=== PATIENT | female | born 1975 | race Caucasian/White ===

== ENCOUNTER 2017-01-11 02:56 | Emergency (ER) | payer BC ==
--- NOTE | ~2017-01-11 | EKG ---
PATIENT: GUERDA GASTELUM UNIT #: [id number] Ventricular Rate: 96 BPM Atrial Rate: 96 BPM P-R Interval: 136 ms QRS Duration: 80 ms Q-T Interval: 350 ms QTC Calculation(Bezet): 442 ms P [place]: 65 degrees Calculated R [place]: 21 degrees Calculated T [place]: 16 degrees Diagnosis Line: Normal sinus rhythm Diagnosis Line: Normal ECG Diagnosis Line: No previous ECGs available Diagnosis Line: Confirmed by ELADIA ROJAS MD ([id number]) on Diagnosis Line: 01/11/2017 5:29:43 PM INTERPRETING MD: BOB MENDOZA
--- NOTE | ~2017-01-11 | CT16 ---
[facility] A Service [facility] RADIOLOGY TEXT RESULTS PATIENT: GUERDA GASTELUM LOCATION: SED : 73 UNIT #: [id number] AGE: [address]: Santi Whitten MD SEX: F ORDER DR: [id number] [place] [id number] E MR#: [id number] Acc #: [id number] NAME: GUERDA GASTELUM. : 1975 SEX: F STUDY DATE/TIME: 01/11/2017 4:17 UNIT: SED ROOM: STUDY DESCRIPTION: CT Angio Chest for PE Attending Physician: Santi Whitten M.D. Ordering Physician: Santi Whitten M.D. Primary Care Physician: Cleveland Morgan M.D. MEDICAL IMAGING REPORT This report is preliminary unless electronic signature is present. EXAM CTA chest. INDICATIONS Chest pain radiating to the left side and left neck. Left arm pain. Elevated D-dimer. TECHNIQUE CT angiography of the chest utilizing 100 mL Isovue-370 IV contrast. Coronal 3-D MIP reconstructions and sagittal reconstructions were obtained. This CT exam was performed with one or more of the following radiation dose reduction techniques: automatic exposure control, adjustment of mA and/or kV according to patient size, and iterative reconstruction. COMPARISON None available. FINDINGS No pulmonary embolus. No thoracic aortic aneurysm or dissection. No pericardial or pleural effusion. No pathologically enlarged mediastinal or hilar lymph nodes. There is no focal consolidation. Minimal linear atelectasis or scarring is noted in the left lung base. The central airways are patent. Limited images of the upper abdomen were obtained. There is no acute findings. No acute osseous abnormalities. IMPRESSION 1. Negative for pulmonary embolus. [facility] A Service [facility] RADIOLOGY TEXT RESULTS PATIENT: GUERDA GASTELUM LOCATION: SED : 73 UNIT #: [id number] AGE: [address]: Santi Whitten MD SEX: F ORDER DR: 2. No acute findings in the chest. 3. Minimal linear atelectasis or scarring in the left lung base. Dictated by... Paul Cisneros M.D. THIS IS AN ELECTRONICALLY VERIFIED REPORT Paul Cisneros M.D. at 01/14/2017 4:15 PM ELAINE/suleiman TD: 01/11/2017 09:13 JOB #: [id number] MEDICAL IMAGING REPORT Page 1 of 1
[~2017-01-11 02:56] MED LIST: ALAVERT D12 PO; ANTIVERT PO; AZO CRANBERRY PO; AZO YEAST PO; BENTYL10 MG PO; KETOPROFEN PO; LIPITOR PO; LOESTRIN FE 1.51 TAB PO; SYNTHROID PO; TYLENOL SINUS1 EACH PO; WELLBUTRIN XL PO
[2017-01-11] MEDS ORDERED: LIPITOR (03:07)
[2017-01-11] MEDS ORDERED: LISINOPRIL (03:08)
[2017-01-11 03:35] LABS: BASOPHIL% 0.3 % (0-2.5); EOSINOPHIL# 0.2 X10e3 (0-0.7); EOSINOPHIL% 2.5 % (0.0-7.0); HEMATOCRIT 43.2 % (35.0-45.0); HEMOGLOBIN 14.7 gm/dL (12.0-16.0); LYMPHOCYTE# 1.8 X10e3 (1.0-3.5); LYMPHOCYTE% 22.4 % (17.0-45.0); MEAN CELL VOLUME 86.9 FL (83-96); MEAN CORPUSCULAR HEMOGLOBIN 29.6 PG (28-34); MEAN CORPUSCULAR HGB CONC 34.1 g/dL (30-36); MEAN PLATELET VOLUME 8.3 FL (6.5-11.5); MONOCYTE# 0.8 X10e3 (0-1.0); MONOCYTE% 9.6 % (3.0-12.0); NEUTROPHIL# 5.1 X10e3 (1.5-7.1); NEUTROPHIL% 65.2 % (40-75); PLATELET COUNT 212 X10e3 (140-420); RED BLOOD COUNT 4.97 X10e (3.90-5.30); RED CELL DISTRIBUTION WIDTH 13.3 % (11.0-15.5); WHITE BLOOD COUNT 7.9 X10e3 (4.0-10.5)
[2017-01-11 03:38] LABS: DIFF IND NO; INR 1.2; PROTHROMBIN TIME (PATIENT) 13.1 SECONDS (9.5-12.4)
[2017-01-11 03:41] LABS: POC - CKMB <1.0 ng/mL (0.0-7.9); POC - TROPONIN <0.05 ng/mL (<=0.05)
[2017-01-11 03:45] LABS: PARTIAL THROMBOPLASTIN TIME 28.8 SECONDS (25.6-38.1)
[2017-01-11 03:47] LABS: ALBUMIN SERUM 4.8 g/dL (3.5-5.0); BILIRUBIN, DIRECT 0.1 mg/dL (0.0-0.2); BILIRUBIN,INDIRECT 0.8 mg/dL (0.0-0.9); BILIRUBIN,TOTAL 0.9 mg/dL (0.2-2.0); BUN/CREATININE RATIO 15.55; CALCIUM SERUM 9.5 mg/dL (8.4-10.2); CREATININE SERUM 0.9 mg/dL (0.6-1.4); GLOM FILT RATE Estimated 78.9 mL/min (>60); POTASSIUM 3.6 mmol/L (3.5-5.1); PROTEIN TOTAL SERUM 8.4 g/dL (6.0-8.3)
[2017-01-11 06:04] LABS: POC - CKMB <1.0 ng/mL (0.0-7.9)
[2017-01-11 06:05] LABS: POC - TROPONIN <0.05 ng/mL (<=0.05)
[2017-02-11] MEDS ORDERED: PROTONIX PO (11:39)
[2017-02-11] MEDS ORDERED: MAALOX SUSPENS355 ML PO (11:40)
[2017-02-11] MEDS ORDERED: PROPRANOLOL PO (11:41)
[2017-02-11] MEDS ORDERED: NYSTATIN100000 UN1 PO (11:42)
[2017-02-11] MEDS ORDERED: SUMATRIPTAN SUC50 M1 PO (11:42)
[2017-02-11] MEDS ORDERED: LISINOPRIL2.5 MG PO (11:42)
[2017-02-11] MEDS ORDERED: ZYRTEC10 M1 PO (11:43)
[2017-02-11] MEDS ORDERED: LIPITOR20 MG PO (11:43)
== END 2017-01-11 06:09 | disposition home or self-care (01) ==
LOC: SED 02:56
PROVIDERS: Emergency Medicine
DX: R07.9 Chest pain, unspecified (principal); E78.5 Hyperlipidemia, unspecified; I10 Essential (primary) hypertension; Z90.49 Acquired absence of other specified parts of digestive tract; Z90.89 Acquired absence of other organs; Z88.8 Allergy status to other drugs, medicaments and biological substances
CPT/HCPCS: 36415; 71275; 80048; 80076; 82553; 84484; 84703; 85025; 85379; 85610; 85730; 93005; 96361; 96374; 96375; 99285; J0780; J1200; J1885; Q9967

== ENCOUNTER 2017-01-31 20:44 | Emergency (ER) | payer BC ==
[~2017-01-31] VITALS: Ht 170.2 cm; Wt 87.1 kg
--- NOTE | ~2017-01-31 | EKG ---
PATIENT: GUERDA GASTELUM UNIT #: [id number] Ventricular Rate: 80 BPM Atrial Rate: 80 BPM P-R Interval: 156 ms QRS Duration: 86 ms Q-T Interval: 390 ms QTC Calculation(Bezet): 449 ms P [place]: 53 degrees Calculated R [place]: 12 degrees Calculated T [place]: 23 degrees Diagnosis Line: Normal sinus rhythm Diagnosis Line: Cannot rule out Anterior infarct , age Diagnosis Line: undetermined Diagnosis Line: Abnormal ECG Diagnosis Line: No previous ECGs available Diagnosis Line: Confirmed by ELADIA ROJAS MD ([id number]) on Diagnosis Line: 02/01/2017 7:33:00 AM INTERPRETING MD: BOB MENDOZA
--- NOTE | ~2017-01-31 | CT114 ---
[facility] of [facility] RADIOLOGY TEXT RESULTS PATIENT: GUERDA GASTELUM LOCATION: [facility] : 73 UNIT #: [id number] AGE: [address]: Rambo Newman MD SEX: F ORDER DR: [id number] [facility] [address] [place], [place] [address] [id number] E MR#: [id number] Acc #: [id number] NAME: GUERDA GASTELUM : 1975 SEX: F STUDY DATE/TIME: 01/31/2017 22:48 UNIT: [facility] ROOM: STUDY DESCRIPTION: CT Soft Tissue Neck W Cont Attending Physician: Rambo Newman M.D. Ordering Physician: Rambo Newman M.D. Primary Care Physician: Cleveland Morgan M.D. MEDICAL IMAGING REPORT This report is preliminary unless electronic signature is present EXAM Neck CT, 01/31 at 22:48 INDICATIONS Throat and neck swelling for the last 3 days. Recent diagnosis of thrush. TECHNIQUE Axial images were obtained through the neck following IV contrast administration. Multiplanar reformats were obtained. No comparison. This CT exam was performed with one or more of the following radiation dose reduction techniques: Automatic exposure control, adjustment of mA and/or kV according to patient size, and iterative reconstruction. FINDINGS Visualized upper lungs are clear. Thyroid gland appears normal. The larynx is normal. Epiglottis is normal. Salivary glands are normal. Floor of the mouth is within normal limits. No adenopathy is seen. Prevertebral soft tissues are normal, as are the tonsillar pillars. Visualized portions of the paranasal sinuses are clear. Airway is widely patent. IMPRESSION Normal CT of the neck. Dictated by... Roderick Palmer Jr., M.D. THIS IS AN ELECTRONICALLY VERIFIED REPORT Roderick Palmer Jr., M.D. at 02/01/2017 6:53 AM JACQUELINEK/claudia TD: 01/31/2017 23:19 [facility] RADIOLOGY TEXT RESULTS PATIENT: GUERDA GASTELUM LOCATION: [facility] #: [id number] : 73 UNIT #: [id number] AGE: [address]: Rambo Newman MD SEX: F ORDER DR: JOB #: [id number] MEDICAL IMAGING REPORT Page 1 of 1 COPY
[~2017-01-31 20:44] MED LIST changes: -LIPITOR20 MG PO; -LISINOPRIL2.5 MG PO; -MAALOX SUSPENS355 ML PO; -NYSTATIN100000 UN1 PO; -PROPRANOLOL PO; -PROTONIX PO; -SUMATRIPTAN SUC50 M1 PO; -ZYRTEC10 M1 PO
[2017-01-31 22:04] LABS: BASOPHIL% 0.4 % (0-2.5); EOSINOPHIL# 0.1 X10e3 (0-0.7); EOSINOPHIL% 1.2 % (0.0-7.0); HEMATOCRIT 40.1 % (35.0-45.0); HEMOGLOBIN 13.4 gm/dL (12.0-16.0); LYMPHOCYTE# 2.5 X10e3 (1.0-3.5); LYMPHOCYTE% 21.8 % (17.0-45.0); MEAN CELL VOLUME 87.5 FL (83-96); MEAN CORPUSCULAR HEMOGLOBIN 29.3 PG (28-34); MEAN CORPUSCULAR HGB CONC 33.5 g/dL (30-36); MEAN PLATELET VOLUME 8.6 FL (6.5-11.5); MONOCYTE# 0.9 X10e3 (0-1.0); MONOCYTE% 8.3 % (3.0-12.0); NEUTROPHIL# 7.7 X10e3 (1.5-7.1); NEUTROPHIL% 68.3 % (40-75); PLATELET COUNT 216 X10e3 (140-420); RED BLOOD COUNT 4.58 X10e (3.90-5.30); RED CELL DISTRIBUTION WIDTH 13.7 % (11.0-15.5); WHITE BLOOD COUNT 11.2 X10e3 (4.0-10.5)
[2017-01-31 22:05] LABS: DIFF IND NO
[2017-01-31 22:28] LABS: BUN/CREATININE RATIO 11.25; CREATININE SERUM 0.8 mg/dL (0.6-1.4)
[2017-02-11] MEDS ORDERED: PROTONIX PO (11:39)
[2017-02-11] MEDS ORDERED: MAALOX SUSPENS355 ML PO (11:40)
[2017-02-11] MEDS ORDERED: PROPRANOLOL PO (11:41)
[2017-02-11] MEDS ORDERED: LISINOPRIL2.5 MG PO (11:42)
[2017-02-11] MEDS ORDERED: NYSTATIN100000 UN1 PO (11:42)
[2017-02-11] MEDS ORDERED: SUMATRIPTAN SUC50 M1 PO (11:42)
[2017-02-11] MEDS ORDERED: ZYRTEC10 M1 PO (11:43)
[2017-02-11] MEDS ORDERED: LIPITOR20 MG PO (11:43)
== END 2017-01-31 23:35 | disposition home or self-care (01) ==
LOC: CED 20:44
PROVIDERS: Emergency Medicine
DX: R07.0 Pain in throat (principal); F45.8 Other somatoform disorders; I10 Essential (primary) hypertension; Z79.899 Other long term (current) drug therapy; Z88.1 Allergy status to other antibiotic agents
CPT/HCPCS: 36415; 70491; 80048; 85025; 93005; 96372; 99284; J1100; Q9967

== ENCOUNTER → 2017-01-31 | Outpatient (CLI) | payer BC ==
[~2017-01-31] MED LIST changes: +LIPITOR; +LIPITOR20 MG PO; +LISINOPRIL; +LISINOPRIL2.5 MG PO; +MAALOX SUSPENS355 ML PO; +NYSTATIN100000 UN1 PO; +PROPRANOLOL PO; +PROTONIX PO; +SUMATRIPTAN SUC50 M1 PO; +ZYRTEC10 M1 PO
--- NOTE | ~2017-01-31 | CT71 ---
[facility] A Service of [facility] RADIOLOGY TEXT RESULTS PATIENT: GUERDA GASTELUM LOCATION: [facility] : [birth year] UNIT #: [id number] AGE: [address]: Cleveland Morgan MD SEX: F ORDER DR: [id number] [place] [id number] O MR#: [id number] [facility] #: [id number] NAME: GUERDA GASTELUM : 1975 SEX: F STUDY DATE/TIME: 01/31/2017 9:21 UNIT: [facility] ROOM: STUDY DESCRIPTION: CT Head Wo Contrast Attending Physician: Cleveland Morgan M.D. Referring Physician: Cleveland Morgan M.D. Ordering Physician: Cleveland Morgan M.D. Primary Care Physician: Cleveland Morgan M.D. MEDICAL IMAGING REPORT This report is preliminary unless electronic signature is present. EXAM Head CT without contrast HISTORY Migraine headaches beginning Nov, 2016 predominately on the left side behind the eyes. Photophobia. TECHNIQUE Axial images were obtained without contrast. This CT exam was performed with one or more of the following radiation dose reduction techniques: automatic exposure control, adjustment of mA and/or kV according to patient size, and iterative reconstruction. FINDINGS The brain images are normal with no evidence of mass, hemorrhage or edema. No midline shift is seen. Extraaxial structures are remarkable for a tiny amount of fluid in the left maxillary sinus. The other sinuses are clear. Septal deviation to the right is noted and there is a evelyne bullosa air cell seen in the left middle turbinate. IMPRESSION Minimal fluid in the left maxillary sinus. Septal deviation to the right secondary to a left-sided evelyne bullosa air cell. No acute findings in the brain. Dictated by... Rodeirck Wesley M.D. THIS IS AN ELECTRONICALLY VERIFIED REPORT Roderick Wesley M.D. at 01/31/2017 3:39 PM RLF/cyndi [facility] A Service of [facility] RADIOLOGY TEXT RESULTS PATIENT: GUERDA GASTELUM LOCATION: [facility] : 73 UNIT #: [id number] AGE: [address]: Cleveland Morgan MD SEX: F ORDER DR: TD: 01/31/2017 15:21 JOB #: [id number] MEDICAL IMAGING REPORT Page 1 of 1
== END | disposition home or self-care (01) ==
LOC: SCT 08:40
DX: R51 Headache (principal); J34.2 Deviated nasal septum
CPT/HCPCS: 70450

== ENCOUNTER → 2017-02-08 | Outpatient (CLI) | payer BC ==
[~2017-02-08] MED LIST changes: +LIPITOR20 MG PO; +LISINOPRIL2.5 MG PO; +MAALOX SUSPENS355 ML PO; +NYSTATIN100000 UN1 PO; +PROPRANOLOL PO; +PROTONIX PO; +SUMATRIPTAN SUC50 M1 PO; +ZYRTEC10 M1 PO
--- NOTE | ~2017-02-08 | US84 ---
[id number] [facility] [address] [place], [place] [address] [id number] O MR#: [id number] Acc #: [id number] NAME: GUERDA GASTELUM : 1975 SEX: F STUDY DATE/TIME: 02/08/2017 15:10 UNIT: [facility] ROOM: STUDY DESCRIPTION: US LE Veins Complete Oral Stdy Attending Physician: Cleveland Morgan M.D. Referring Physician: Cleveland Morgan M.D. Ordering Physician: Cleveland Morgan M.D. Primary Care Physician: Cleveland Morgan M.D. MEDICAL IMAGING REPORT This report is preliminary unless electronic signature is present EXAM Bilateral lower extremity venous duplex 02/08/2017 HISTORY Bilateral lower extremity pain for 1 week. No known injury. Evaluate for deep vein thrombosis. TECHNIQUE Venous ultrasound examination of both lower extremities was performed using grayscale, spectral Doppler and color flow Doppler imaging. FINDINGS The examination is negative. There is no evidence of deep venous thrombus from the groin to the lower calf bilaterally. Visualized greater saphenous veins are also patent. IMPRESSION Negative examination. No evidence of lower extremity deep venous thrombosis. Dictated by... Baljinder Landrum M.D. THIS IS AN ELECTRONICALLY VERIFIED REPORT Baljinder Landrum M.D. at 02/11/2017 6:07 AM NASREEN/lucas TD: 02/08/2017 21:04 JOB #: [id number] MEDICAL IMAGING REPORT Page 1 of 1 COPY
== END | disposition home or self-care (01) ==
LOC: CNIV 14:34
DX: M79.604 Pain in right leg (principal); M79.605 Pain in left leg
CPT/HCPCS: 93970

== ENCOUNTER 2017-02-09 17:27 | Emergency (ER) | payer BC ==
[~2017-02-09] VITALS: Ht 170.2 cm; Wt 81.6 kg
[~2017-02-09 17:27] MED LIST changes: -LIPITOR20 MG PO; -LISINOPRIL2.5 MG PO; -MAALOX SUSPENS355 ML PO; -NYSTATIN100000 UN1 PO; -PROPRANOLOL PO; -PROTONIX PO; -SUMATRIPTAN SUC50 M1 PO; -ZYRTEC10 M1 PO
[2017-02-09 18:28] LABS: BASOPHIL% 0.4 % (0-2.5); EOSINOPHIL# 0.1 X10e3 (0-0.7); HEMATOCRIT 39.7 % (35.0-45.0); HEMOGLOBIN 13.5 gm/dL (12.0-16.0); LYMPHOCYTE# 1.9 X10e3 (1.0-3.5); LYMPHOCYTE% 25.4 % (17.0-45.0); MEAN CELL VOLUME 87.7 FL (83-96); MEAN CORPUSCULAR HEMOGLOBIN 29.8 PG (28-34); MEAN PLATELET VOLUME 9.1 FL (6.5-11.5); MONOCYTE# 0.9 X10e3 (0-1.0); MONOCYTE% 11.2 % (3.0-12.0); NEUTROPHIL# 4.7 X10e3 (1.5-7.1); PLATELET COUNT 201 X10e3 (140-420); RED BLOOD COUNT 4.53 X10e (3.90-5.30); WHITE BLOOD COUNT 7.7 X10e3 (4.0-10.5)
[2017-02-09 18:29] LABS: DIFF IND NO
[2017-02-09 19:03] LABS: CALCIUM SERUM 9.4 mg/dL (8.4-10.2); CREATININE SERUM 0.7 mg/dL (0.6-1.4); GLOM FILT RATE Estimated 106.9 mL/min (>60); POTASSIUM 3.7 mmol/L (3.5-5.1)
[2017-02-11] MEDS ORDERED: PROTONIX PO (11:39)
[2017-02-11] MEDS ORDERED: MAALOX SUSPENS355 ML PO (11:40)
[2017-02-11] MEDS ORDERED: PROPRANOLOL PO (11:41)
[2017-02-11] MEDS ORDERED: SUMATRIPTAN SUC50 M1 PO (11:42)
[2017-02-11] MEDS ORDERED: LISINOPRIL2.5 MG PO (11:42)
[2017-02-11] MEDS ORDERED: NYSTATIN100000 UN1 PO (11:42)
[2017-02-11] MEDS ORDERED: ZYRTEC10 M1 PO (11:43)
[2017-02-11] MEDS ORDERED: LIPITOR20 MG PO (11:43)
== END 2017-02-09 19:55 | disposition home or self-care (01) ==
LOC: CED 17:27
PROVIDERS: Emergency Medicine
DX: T18.198A Other foreign object in esophagus causing other injury, initial encounter (principal); I10 Essential (primary) hypertension; Z88.1 Allergy status to other antibiotic agents; X58.XXXA Exposure to other specified factors, initial encounter
CPT/HCPCS: 36415; 80048; 85025; 99283

== ENCOUNTER → 2017-02-11 | Day surgery (SDC) | payer BC ==
[~2017-02-11] MED LIST changes: +LIPITOR20 MG PO; +LISINOPRIL2.5 MG PO; +MAALOX SUSPENS355 ML PO; +NYSTATIN100000 UN1 PO; +PROPRANOLOL PO; +PROTONIX PO; +SUMATRIPTAN SUC50 M1 PO; +ZYRTEC10 M1 PO
--- NOTE | ~2017-02-11 | CO ---
Unit #: [id number] #: [id number] Patient: GUERDA VALENZUELA [id number] [address] [place], [place] [address] [id number] O MR#: [id number] NAME: GUERDA VALENZUELA ROOM: Age: 41 Sex: F Admission Date: 02/11/2017 : 1975 Attending Physician: Bill Perez M.D. Primary Care Physician: Cleveland Morgan M.D. Consultation Date: 02/11/2017 CONSULTATION REPORT REASON FOR CONSULTATION Dysphagia and odynophagia. The patient was seen in the outpatient surgery as she had severe odynophagia and dysphagia for the past 2 days. HISTORY Ms. 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 She presents with history of having severe odynophagia and dysphagia after having swallowed a Protonix tablet prescribed earlier. She had been on the same medicine for the past couple weeks. She went to the emergency room and from there was sent home, as she was able to swallow water. PAST MEDICAL HISTORY Her past medical history is significant for history of gastroesophageal reflux, as well as history of hypertension, hyperlipidemia. PAST SURGICAL HISTORY Previous surgeries include appendectomy, cholecystectomy, Caesarian section, tonsillectomy and placement of a chest tube as an infant. MEDICATIONS Medications at home included Protonix, Maalox, propranolol, nystatin, sumatriptan, lisinopril, Lipitor and Zyrtec. ALLERGIES Zithromax and topiramate. SOCIAL HISTORY She does not smoke or drink alcohol. 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 FAMILY HISTORY None of colon or pancreas cancer or liver disease. REVIEW OF SYSTEMS A detailed review of organ systems reveals 4- or 5-pound weight loss over the past week or 10 days. There is no history of fevers, chills or rigors. There is no history of headache or seizures, chest pain or syncope. No history of cough, expectoration or hemoptysis. No history of dysuria, hematuria or polyuria. No focal seizures or extremity weakness. The rest of the review of organ systems is unremarkable. PHYSICAL EXAMINATION GENERAL: On examination, she is alert and oriented, appears well nourished. She has no pallor, icterus, lymphadenopathy or peripheral Unit #: [id number] #: [id number] Patient: GUERDA VALENZUELA edema. VITAL SIGNS: Vital signs are stable with a temperature of 97.9, pulse 80 per minute and regular, respiratory rate 18, blood pressure 124/82. She weighs 79.09 kg and appears well nourished. Her BMI is 27. CARDIOVASCULAR: Normal heart sounds. No murmurs on auscultation. RESPIRATORY: The lungs reveal normal breath sounds, good air entry. ABDOMEN: The abdomen is soft and nontender. The liver and spleen are not palpable. Bowel sounds are normal. CLINICAL IMPRESSION It is possible the patient may have pill esophagitis. Other possibilities include (1) esophagitis, as well as esophageal stricture from gastroesophageal reflux disease. A diagnostic upper endoscopy and possible dilation is indicated and will be scheduled shortly. The pros and cons of the procedure and potential risks and complications were discussed with the patient, and she was reassured. Thank you for asking me to see this pleasant lady, and I appreciate the consult. Dictated by... Tg Black/stanton TD: 02/11/2017 16:22 JOB #: [id number] CONSULTATION REPORT Page 1 of 1 X Bill Perez MD CONSULTATION REPORT
--- NOTE | ~2017-02-11 | OR ---
Unit #: [id number] #: [id number] Patient: GUERDA GASTELUM [id number] [address] [place], [place] [address] [id number] O MR#: [id number] NAME: GUERDA GASTELUM ROOM: Date of Procedure: 02/11/2017 Admission Date: 02/11/2017 Surgeon: Bill Perez M.D. : 1975 Attending Physician: Bill Perez M.D. Primary Care Physician: Cleveland Morgan M.D. OPERATIVE REPORT PREOPERATIVE DIAGNOSES Dysphagia and odynophagia. The patient had been to the emergency room after saying that a Protonix pill got stuck in the throat. She has been extremely worried and concerned that she has not been able to eat any solid since then for the last two days. In the interim, she has lost about 5 pounds. PROCEDURES PERFORMED Upper gastrointestinal endoscopy and dilation. POSTOPERATIVE DIAGNOSES The examination was in fact completely normal up to third part of duodenum. Careful attention was paid to the pharynx, posterior oropharynx, and no ulceration or stricture was seen and repeat dilation with a 60-Slovenian Thompson dilator was also done. RECOMMENDATIONS The patient is advised to continue Protonix and will be followed up in the office in one week time. SEDATION USED MAC. DESCRIPTION OF PROCEDURE Following detailed explanation of potential risks and complications of an upper endoscopy, namely perforation, bleeding, and complication related to sedation, the patient was brought to GI lab and laid in the left lateral decubitus position. Lubricated tip of the Olympus video upper endoscope was passed through the bite block into the proximal esophagus under direct vision. The entire esophageal mucosa was examined and appeared normal. Z-line was nicely demarcated, there being no esophagitis or hiatus hernia. The scope was then advanced into the gastric cavity and the latter was insufflated. Mucosa of the fundus, body, and antrum was examined and appeared unremarkable. Pylorus was intubated with visualization of the normal duodenal bulb and second and third part of the duodenum. Upon withdrawal and retroflexion; incisura, cardia, and greater curve was examined and no additional findings were noted. The scope was then withdrawn in the distal esophagus. Entire esophageal mucosa was examined all the way up to pharynx. No additional findings were noted. Careful attention was paid to the oropharynx and posterior pharynx and no abnormalities were noted. Unit #: [id number] #: [id number] Patient: GUERDA GASTELUM A 60-Slovenian Thompson dilator was then introduced through the oral cavity into the esophagus and no resistance was encountered during dilation. Relook endoscopy did not show any bleeding indicating the patient did not have any stricture to start with. The patient tolerated the procedure without any postprocedure complications. Dictated by... Tg Black/corine TD: 02/11/2017 14:49 JOB #: [id number] OPERATIVE REPORT Page 1 of 1 X Bill Perez MD X PROCEDURE OPERATIVE NOTE
== END | disposition home or self-care (01) ==
LOC: COPS 10:24
DX: R13.10 Dysphagia, unspecified (principal); I10 Essential (primary) hypertension; E78.5 Hyperlipidemia, unspecified; K21.9 Gastro-esophageal reflux disease without esophagitis; E03.9 Hypothyroidism, unspecified; Z88.1 Allergy status to other antibiotic agents; Z88.8 Allergy status to other drugs, medicaments and biological substances; Z79.899 Other long term (current) drug therapy; Z90.49 Acquired absence of other specified parts of digestive tract; Z98.890 Other specified postprocedural states
CPT/HCPCS: 84703